=== PATIENT | female | born 1945 | race Caucasian/White ===

== ENCOUNTER 2020-03-15 11:41 | Outpatient (CLI) | payer MEDICARE ==
[~2020-03-15 11:41] MED LIST: Magnevist 469MG/ML 20 ML VIAL ONE
--- NOTE | 2020-03-15 14:07 | MRI ---
MRI BRAIN AND INTERNAL AUDITORY CANALS WITH AND WITHOUT CONTRAST: Date: 03/15/2020 HISTORY: 75-year-old female ICD-10: "H 81.20, vestibular neuronitis" Vertigo. Hearing loss right ear, chronic. TECHNIQUE: Multiplanar, multisequence MRI, both whole brain images and thin slices through the IACs, pre and pos t IV injection of gadolinium-based contrast agent. FINDINGS: There is no obstructive hydrocephalus. There is no midline shift or any other evidence of mass effect . There is no extra-axial fluid collection. There are mild chronic ischemic white matter changes due to microvascular atherosclerosis. There is otherwise no major intra-axial signal abnormality, abn ormal enhancement, mass, recent hemorrhage, or restricted diffusion. There is no abnormal enhancement, mass, or morphologic abnormality, involving the cerebellopontine an gles, 7th-8th nerve complexes, internal auditory canals, cochleae, vestibules, vestibular aqueducts, or semicircular canals. IMPRESSION: 1) mild chronic ischemic white matter changes. 2) otherwise negative
== END 2020-03-15 11:42 | disposition home or self-care (01) ==
LOC: MRI 11:41
PROVIDERS: ATTEND Otolaryngology Plastic Surgery within the Head & Neck
DX: H81.20 Vestibular neuronitis, unspecified ear (principal); I67.82 Cerebral ischemia
CPT/HCPCS: 70553; 82565; A9579